=== PATIENT | female | born 1945 | race Caucasian/White ===

== ENCOUNTER 2018-03-23 11:35 | Day surgery (SDC) | payer MEDICARE, OTHER, SELFPAY ==
[2018-03-16 14:35] VITALS: BMI 31.8
[2018-03-23 12:50] VITALS: BP 186/98; PULSE 88; RESP 16; TEMP 36.4; O2SAT 100
[2018-03-23 12:51] VITALS: BMI 31.8
[2018-03-23] MEDS: LACTATED RINGERS 1,000 ML 42 ML IV (13:21)
[2018-03-23] MEDS: CEFAZOLIN 2 GM/100 ML FROZ.PIGGY IV (14:44)
--- NOTE | 2018-03-23 15:17 | SUR.OPER ---
Supine on padded OR bed, head on pillow, arms secured on padded arm boards at <90 degrees abduction, legs uncrossed, safety belt at thigh, tape over blanket over lower legs.
[2018-03-23] MEDS: LIDOCAINE 2% INJ (15:26)
[2018-03-23] MEDS: LIDOCAINE 1% W/EPI INJ 20 ML INJ (15:27)
[2018-03-23] MEDS: BUPIVACAINE 0.5% (PF) 30 ML VIAL INJ (15:28)
[2018-03-23 16:38] VITALS: BP 154/95; PULSE 106; RESP 20; TEMP 36.4; O2SAT 95
[2018-03-23 16:40] VITALS: BP 152/90; RESP 24; TEMP 36.4; O2SAT 95
--- NOTE | 2018-03-23 16:41 | PM.OP.1 ---
Procedure & Clinicians Procedure: Arthrodesis, 1st MTP joint, right foot Same procedure as scheduled: Yes Indications: Painful severe bunion with subluxation of 1st MTP joint, right foot Surgeon: Wesley Gonzalez Click Yes if Unassisted: Yes Anesthesia Type: General and Local Operative Notes Findings: Subluxation of 1st MTP joint with severe bunion, right foot Closure Type: primary Specimen(s): none sent Applied: implant(s) ([place] 28 1st MP joint locking fusion plate and screws) Estimated Blood Loss (mL): 10 Blood products transfused: none Tourniquet time (min): 0 Procedure in detail: Operation patient was taken from the day surgery area back to the OR via gurney after having been given IV antibiotic prophylaxis. She was placed on the OR table in the supine position, general anesthesia was induced. Local infiltration of lidocaine plain and with epi 12 cc total was infiltrated around the surgical site. The foot was then prepped and draped in usual sterile fashion from toes to knee. A high calf tourniquet was placed, however, it was not utilized throughout the case. Procedure arthrodesis, 1st metatarsophalangeal joint, right foot (35425) Attention was directed toward the dorsum of the 1st MTP joint. A curvilinear incision was placed centered over the 1st MTP joint following the severe bunion deformity. Sharp and blunt dissection were utilized through the subcutaneous tissue layer taking care to retract all vital structures and cauterized as necessary for adequate hemostasis. A dorsal capsulotomy was performed, delivering the head of the 1st metatarsal and base of the proximal phalanx. The adjacent joint surfaces were denuded of all articular cartilage utilizing the cone and cup Reamer system. Multiple fenestrations of 15-20 in number, were then placed into the 1st met head and base of the proximal phalanx with a large K-wire to stimulate osteo synthesis. The 1st MP joint was then placed into a corrected position, and then permanently fixated utilizing the incorporated jig for a 4.0 partially-threaded lag screw from medial distal to proximal lateral. Excellent compression was found on tightening down the screw. Even though on fluoroscopy it was a bit long, the patient's bone felt a bit soft and I did not want to lose that fixation so we left in the longer screw. At this point then appropriate fixation with the dorsal locking plate was carried out utilizing 2.7 and 3.5 mm locking plates and 1 nonlocking screw proximally. Excellent tight compression was obtained across the fusion site and with the plate. Fluoroscopy was used to confirm fixation. The wound was then copiously irrigated again as had been done multiple times throughout the case, with antibiotic solution. Layered wound closure was then performed utilizing 3 0, 4 0, and 5 0 Vicryl respectively for the capsule, subcu, and skin. Steri-Strips were placed. A postop injection of 12 cc 0.5% Marcaine plain was infiltrated around the surgical site. A light gauze compression bandage was then applied. Patient will be placed into her BK removable cast boot in the recovery room. The patient tolerated the procedure and anesthesia well without any apparent complications. She left the OR with vital signs stable and digital perfusion intact. She will be seen the following week in the [place] office. Condition: stable Disposition: PACU Plan for aftercare: Patient will be discharged home tonight. May bear weight as long as she has the walking boot on. Keep the bandage clean and dry. Follow up in the [place] office.
[2018-03-23 16:45] VITALS: BP 157/98; RESP 24; TEMP 36.4; O2SAT 95
--- NOTE | 2018-03-23 16:48 | P.OP_ITS ---
Procedure & Clinicians Procedure: Arthrodesis, 1st MTP joint, right foot Same procedure as scheduled: Yes Indications: Painful severe bunion with subluxation of 1st MTP joint, right foot Surgeon: Wesley Gonzalez Click Yes if Unassisted: Yes Anesthesia Type: General and Local Operative Notes Findings: Subluxation of 1st MTP joint with severe bunion, right foot Closure Type: primary Specimen(s): none sent Applied: implant(s) ([place] 28 1st MP joint locking fusion plate and screws) Estimated Blood Loss (mL): 10 Blood products transfused: none Tourniquet time (min): 0 Procedure in detail: Operation patient was taken from the day surgery area back to the OR via gurney after having been given IV antibiotic prophylaxis. She was placed on the OR table in the supine position, general anesthesia was induced. Local infiltration of lidocaine plain and with epi 12 cc total was infiltrated around the surgical site. The foot was then prepped and draped in usual sterile fashion from toes to knee. A high calf tourniquet was placed, however, it was not utilized throughout the case. Procedure arthrodesis, 1st metatarsophalangeal joint, right foot (22980) Attention was directed toward the dorsum of the 1st MTP joint. A curvilinear incision was placed centered over the 1st MTP joint following the severe bunion deformity. Sharp and blunt dissection were utilized through the subcutaneous tissue layer taking care to retract all vital structures and cauterized as necessary for adequate hemostasis. A dorsal capsulotomy was performed, delivering the head of the 1st metatarsal and base of the proximal phalanx. The adjacent joint surfaces were denuded of all articular cartilage utilizing the cone and cup Reamer system. Multiple fenestrations of 15-20 in number, were then placed into the 1st met head and base of the proximal phalanx with a large K-wire to stimulate osteo synthesis. The 1st MP joint was then placed into a corrected position, and then permanently fixated utilizing the incorporated jig for a 4.0 partially-threaded lag screw from medial distal to proximal lateral. Excellent compression was found on tightening down the screw. Even though on fluoroscopy it was a bit long, the patient's bone felt a bit soft and I did not want to lose that fixation so we left in the longer screw. At this point then appropriate fixation with the dorsal locking plate was carried out utilizing 2.7 and 3.5 mm locking plates and 1 nonlocking screw proximally. Excellent tight compression was obtained across the fusion site and with the plate. Fluoroscopy was used to confirm fixation. The wound was then copiously irrigated again as had been done multiple times throughout the case, with antibiotic solution. Layered wound closure was then performed utilizing 3 0, 4 0, and 5 0 Vicryl respectively for the capsule, subcu, and skin. Steri-Strips were placed. A postop injection of 12 cc 0.5% Marcaine plain was infiltrated around the surgical site. A light gauze compression bandage was then applied. Patient will be placed into her BK removable cast boot in the recovery room. The patient tolerated the procedure and anesthesia well without any apparent complications. She left the OR with vital signs stable and digital perfusion intact. She will be seen the following week in the [place] office. Condition: stable Disposition: PACU Plan for aftercare: Patient will be discharged home tonight. May bear weight as long as she has the walking boot on. Keep the bandage clean and dry. Follow up in the [place] office.
[2018-03-23 16:56] VITALS: BP 169/94; PULSE 93; RESP 18; TEMP 36.6; O2SAT 96
[2018-03-23 17:07] VITALS: BP 155/94; PULSE 90; RESP 20; TEMP 36.6; O2SAT 96
== END 2018-03-23 17:15 | disposition home or self-care (01) ==
PROVIDERS: PCP Family Medicine; Visit Provider Podiatrist
PROC: (CPT 28750; principal; 2018-03-23 13:30)
DX: M20.11 Hallux valgus (acquired), right foot (principal); M20.41 Other hammer toe(s) (acquired), right foot; S93.104A Unspecified dislocation of right toe(s), initial encounter; I10 Essential (primary) hypertension; I48.91 Unspecified atrial fibrillation; I25.10 Atherosclerotic heart disease of native coronary artery without angina pectoris; Z79.01 Long term (current) use of anticoagulants
CPT/HCPCS: 28750; J0690; J1100; J2250; J2405; J2704; J3010